=== PATIENT | female | born 1970 | race Caucasian/White ===

== ENCOUNTER 2018-01-27 09:29 | Outpatient (CLI) | payer OTHER ==
--- NOTE | 2018-01-27 10:55 | Diagnostic Imaging Report ---
LESLIE MARIEE (G[employer]ING) - OP [facility] [address] [facility] [address] [address] Report Submission Date: Jan 27, 2018 10:43:28 AM CDT Patient Study Name: CRYSTAL FONG Date: Jan 27, 2018 9:32:49 AM CDT Modality Type: DX Gender: F Description: ABDOMEN : 68 Institution: [facility] Physician: LESLIE MARIEE (G[place]) - OP Examination: Abdomen History: ABD COMPLETE, CONSTIPATION, PT STATES LAST BOWEL MOVEMENT ON Thursday, PROVIDER REQUEST NOTATION ON AMOUNT OF STOOL IN COLON (Hx) Findings: 3 views obtained of the abdomen. No abnormal dilation of the large or small bowel. Moderate amount of stool throughout the large bowel. No suspicious calcification projecting over the renal fossa. Pelvic phleboliths. IUD. Lumbar spine fixation surgical changes. Curvature to the right. Impression: Moderate large bowel stool. No obstruction. Electronically signed on Jan 27, 2018 10:43:28 AM CDT by: Wilner BOYD
== END 2018-01-27 09:30 ==
LOC: RAD 09:29
PROVIDERS: ATTEND Nurse Practitioner Family
DX: K59.00 Constipation, unspecified (principal)
CPT/HCPCS: 74019

== ENCOUNTER 2018-10-28 10:39 | Outpatient (CLI) | payer OTHER ==
--- NOTE | 2018-10-29 06:16 | Diagnostic Imaging Report ---
LESLIE MARIEE ([place]ON) - OP [facility] [address] [facility] [address] Report Submission Date: Oct 28, 2018 11:22:07 AM CDT Patient Study Name: CRYSTAL FONG Date: Oct 28, 2018 10:47:02 AM CDT Modality Type: DX Gender: F Description: CHEST 2VIEW : 68 Institution: [facility] Physician: LESLIE MARIEE ([place]) - OP Examination: PA and lateral chest. History: Evaluate lung kauffman. DRY COUGH X6 WEEKS Comparison exam: None provided. Findings: PA and lateral views of the chest demonstrates a normal cardiac and mediastinal silhouette. No focal infiltrate. No blunting of the costophrenic margins. Osseous structures are appropriate for age. Impression: No acute pulmonary process. Electronically signed on Oct 28, 2018 11:22:07 AM CDT by: Wilner BOYD
== END 2018-10-28 10:42 ==
LOC: RAD 10:39
PROVIDERS: ATTEND Nurse Practitioner Family
DX: R05 Cough (principal)
CPT/HCPCS: 71046